=== PATIENT | male | born 1990 | race African-American/Black ===

== ENCOUNTER 2018-12-06 09:59 | Emergency (ER) | payer OTHER ==
[2018-12-06] MEDS ORDERED: IBUPROFEN 800 MG TABLET PO STA (10:57)
--- NOTE | 2018-12-06 10:59 | ED Physician Documentation ---
PD HPI URI - Stated complaint Stated Complaint: FLU LIKE SX - Chief complaint Chief Complaint: Abd Pain - History obtained from History obtained from: Family - History of Present Illness Timing - onset: How many days ago (2) Timing duration: Days (2) Timing details: Still present Associated symptoms: Fever, Sore throat, Productive cough Similar symptoms before: Has not had sx before - Additional information Additional information: The patient is a 28-year-old active [employer] male who presents with fever, myalgias, headache, sore throat, and cough, that is been persistent for the past 2 days. His cough is productive of scant sputum. He vomited 2 days ago, but denies nausea currently. He denies history of similar symptoms in the past. Review of Systems Constitutional: reports: Fever, Chills, Myalgias, Fatigue Eyes: denies: Irritation Ears: denies: Ear pain Nose: reports: Congestion Throat: reports: Sore throat Cardiac: denies: Chest pain / pressure, Palpitations Respiratory: reports: Cough. denies: Dyspnea GI: denies: Abdominal Pain, Nausea, Vomiting, Diarrhea : denies: Dysuria Skin: denies: Rash Musculoskeletal: denies: Back pain Neurologic: reports: Headache PD PAST MEDICAL HISTORY - Past Medical History Past Medical History: No Cardiovascular: None Respiratory: None Neuro: None Endocrine/Autoimmune: None GI: None : None HEENT: None Psych: None Musculoskeletal: None Derm: None - Past Surgical History Past Surgical History: No - Present Medications Home Medications: Ambulatory Orders Medication Instructions Recorded Confirmed Ibuprofen [Motrin] 800 mg PO Q8H PRN #30 tablet 12/06/18 cephALEXin [Cephalexin] 500 mg PO TID #20 tablet 12/06/18 - Allergies Allergies/Adverse Reactions: Allergies Allergy/AdvReac Type Severity Reaction Status Date / Time No Known Drug Allergies Allergy Verified 12/06/18 10:12 - Social History Does the pt smoke?: No Smoking Status: Never smoker Does the pt drink ETOH?: Yes ETOH Use: Liquor Does the pt have substance abuse?: No - Immunizations Immunizations are current?: Yes - POLST Patient has POLST: No PD ED PE NORMAL - Vitals Vital signs reviewed: Yes (febrile) - General General: Alert and oriented X 3, Well developed/nourished - HEENT HEENT: Atraumatic, EOMI, Ears normal, Other (Oropharynx is erythematous with mildly enlarged tonsils bilaterally, without exudates.) - Neck Neck: Supple, no meningeal sign, Other (Anterior cervical adenopathy bilaterally.) - Cardiac Cardiac: RRR, No murmur - Respiratory Respiratory: No respiratory distress, Clear bilaterally - Abdomen Abdomen: Soft, Non tender - Back Back: No CVA TTP - Derm Derm: No rash - Extremities Extremities: No edema, No calf tenderness / cord - Neuro Neuro: Alert and oriented X 3, No motor deficit, Normal speech Results - Vitals Vitals: Vital Signs - 24 hr 12/06/18 12/06/18 10:06 13:29 Temperature 39 C H 98.3 C H Heart Rate 102 H 88 Respiratory 18 16 Rate Blood Pressure 122/71 118/75 O2 Saturation 98 98 Oxygen O2 Source Room air - Labs Labs: Laboratory Tests 12/06/18 12/06/18 12/06/18 10:12 10:59 12:11 Infectious Lincoln Assay NEGATIVE Influenza A (Rapid) Negative Influenza B (Rapid) Negative Group A Strep Rapid Negative PD MEDICAL DECISION MAKING - ED course Complexity details: reviewed results, re-evaluated patient, considered differential, d/w patient, d/w family ED course: The patient's presentation is most consistent with acute tonsillitis. Rapid strep screen, influenza swab, and Monospot are all negative. His presentation does not suggest meningitis or tonsillar abscess. Treatment in the emergency department included administration of cephalexin 500 mg orally and ibuprofen 800 mg orally. He is being discharged with prescription for cephalexin and for ibuprofen. 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 Departure - Departure Disposition: 01 Home, Self Care Clinical Impression: Acute tonsillitis Qualifiers: Pharyngitis/tonsillitis etiology: unspecified etiology Qualified Code(s): J03.90 - Acute tonsillitis, unspecified Condition: Stable Instructions: ED Tonsillitis Follow-Up: [facility] [Provider Group] Prescriptions: cephALEXin [Cephalexin] 500 mg PO TID #20 tablet Ibuprofen [Motrin] 800 mg PO Q8H PRN #30 tablet PRN Reason: PAIN &/OR FEVER Comments: Gargle with cool liquids. Take cephalexin 3 times daily as prescribed. You can use ibuprofen, up to 800 mg 3 times daily for fever or discomfort. Follow-up with your primary physician within 1 to 2 weeks. Call to schedule appointment. Return to the emergency department if you develop increasing difficulty swallowing, or otherwise worsening symptoms. Forms: Activity restrictions Discharge Date/Time: 12/06/18 13:35
[2018-12-06] MEDS ORDERED: cephALEXin 250 MG CAPSULE PO STA (13:15)
[2018-12-06 13:30] VITALS: BP 118/75
== END 2018-12-06 13:35 | disposition home or self-care (01) ==
LOC: ED 09:59
DX: J03.90 Acute tonsillitis, unspecified (principal)
CPT/HCPCS: 36415; 86308; 87070; 87275; 87276; 87430; 99283; A9270

== ENCOUNTER 2019-08-10 13:35 | Outpatient (CLI) | payer OTHER ==
--- NOTE | 2019-08-10 17:06 | SLEEP CARE CONSULTATION ---
Information from patient questionnaire entered by Marichuy Page. I have reviewed and concur with the information entered by Marichuy Page. This document represents the service I personally performed and the decisions made by me, Saravanan Carrero MD, [facility]. History of Present Illness Reason for Visit: New patient Chief Complaint: reports: Snoring, Fatigue, Frequent awakenings at night Duration of Symptoms: 3 years Usual bedtime: [id number] Time it takes to fall asleep: 30 minutes Snores at night: Yes (sometimes) Observed to quit breathing while asleep: Yes Sleeps alone due to snoring: No Number of times waking at night: 3 Reasons for waking at night: reports: Snoring, Gasping for air Toss, Turn, or Twitch while sleeping: Yes Recalls having dreams: Yes Usually gets out of bed at: 0545 Feels refreshed in the morning: No Morning headache: No Sleepy or fatigued during the day: Yes Ever fallen asleep while driving: No Takes day naps: Yes Dreams during day naps: No Prior sleep studies: No Additional HPI information: I had the pleasure of seeing Mr. Murray today regarding the possibility of him having a sleep disorder. As you know, he is a 29 year old gentleman who complains of loud snore, frequent awakenings, unrefreshed sleep, and excessive daytime sleepiness. The patient tells me that he normally goes to bed around 10:30 - 11 pm, and it takes him approximately 30 minutes to fall asleep. He takes an [id number] sleep aid. He has not been told that he snores loudly and irregularly at night. He has also been observed to stop breathing in his sleep. He can recall waking up on the average of 3 times during the night. Most of the time he wakes up because of his own snoring, choking, and having to gasp for air. There is a lot of tossing and turning in his sleep. He has somniloquy (sleep talking) but not somnambulism (sleep walking). Generally he can recall having dreams. In the morning he usually gets up out of the bed around 5:45 a.m. (10 am on weekends) not feeling refreshed nor rested. He usually does not have a morning headache. During the day he complains of feeling sleepy and fatigued. His score on [place] Sleepiness Scale is 11 out of 24. He has never fallen asleep while driving nor has had any accident due to sleepiness. He usually takes naps during the day. Upon falling asleep during the day he denies having vivid dreams. He has never had sleep paralysis, experienced cataplexy or symptoms of restless leg syndrome. He reports having impaired concentration during the day. Subjective Initial [place] Sleepiness Scale score: 11 Social History The patient's occupation is active . Patient is Single and lives in [place]. Have you smoked in the past 12 months: No Alcohol use: Yes Alcohol amount and frequency: 3 on weekends Caffeine use: Yes Caffeine amount and frequency: 1 Family History Family history of sleep disordered breathing: No Allergies and Home Medications Drug allergies reviewed: Yes Home medication list reviewed: Yes Review of Systems Cardiovascular: denies: high blood pressure, palpitations, chest pain, irregular heart rate or pulse, leg or foot swelling, have to sleep sitting up, other Respiratory: denies: shortness of breath, wheeze, sputum production, chronic cough, other Gastrointestinal: denies: heartburn, difficulty swallowing, nausea, vomitting, diarrhea, abdominal pain, other Urinary: denies: incontinence, frequency, urgency, impotence, other Neurological: denies: headaches, seizure, head trauma, disorientation, speech dysfunction, gait or balance problems, fainting or unconsciousness, other Psychiatric: denies: Attention Deficit Hyperactivity, anxiety, depression, mood disorder, claustrophobia, other Ear/Nose/Throat: denies: nasal congestion, sinus problems, nose bleeds, dry mouth/throat, hoarseness, injury to nose, tonsillectomy, wisdom teeth removed, other Endocrine: denies: thyroid disease, history of goiter, sluggishness, too hot or cold, excessive thirst, increased appetite, increased urination, unexplained weakness, other Musculoskeletal: reports: joint pain, back pain Immunologic: denies: sneezing, rash, itching, allergies to food or environment, other Physical Exam Vital signs obtained and entered by: Dr. Carrero Blood Pressure: 114/76 Cuff size: regular Heart Rate: 66 O2 Saturation: 96 Height: 6 ft Weight: 160 lb Body Mass Index: 21.7 BMI Classification: Healthy weight Neck circumference: 14.5 Mood/affect: normal HEENT: No craniofacial malformation Nostrils: patent to airflow Turbinates: normal Septum: midline Mouth and throat: narrow oropharynx Soft palate: long Hard palate: normal Uvula: normal Uvula visualization: 50% Mallampati Class II Tongue: normal in size Tonsils: small Chin and jaw: normal size and position Neck: normal w/o lymphadenopathy or thyromegaly Heart: regular rate and rhythm Lungs: clear bilaterally Abdomen: soft, non-tender Extremities: no edema or clubbing Neurologic: intact, no focal deficits Impression and Plan IMPRESSION: 1. Suspected Obstructive Sleep Apnea-Hypopnea Syndrome, as suggested by history of loud and irregular snoring, observed cessation of breath while asleep, frequent awakenings during the night, unrefreshed sleep, and daytime hypersomnolence. Narrow oropharynx is a common predisposing factor for obstructive sleep apnea-hypopnea syndrome. Pathophysiology of sleep-disordered breathing was discussed. I recommend proceeding to polysomnography to confirm the diagnosis and to assess severity. I informed the patient of what the sleep studies involve and after some discussion, he agreed to proceed. Plan: 1. Schedule polysomnography and return in 1 to 2 weeks after the study to discuss result and initiate therapy. 2. Avoid long distance driving or when feeling sleepy. I spent 100% of this 20 minute visit face to face with the patient with greater than 50% of this was spent time counseling the patient and coordination of care.
[2019-08-10 17:07] VITALS: BP 114/76
== END 2019-08-10 13:36 | disposition home or self-care (01) ==
LOC: SC 13:35
PROVIDERS: ATTEND Internal Medicine Pulmonary Disease
DX: R06.83 Snoring (principal); R06.81 Apnea, not elsewhere classified; G47.8 Other sleep disorders; G47.10 Hypersomnia, unspecified
CPT/HCPCS: 99203; 99212

== ENCOUNTER 2019-09-03 19:36 | Outpatient (CLI) | payer OTHER | END 2019-09-03 19:37 | disposition home or self-care (01) | LOC: SC 19:36 | PROVIDERS: ATTEND Internal Medicine Pulmonary Disease | DX: R06.83 Snoring (principal); R06.81 Apnea, not elsewhere classified; G47.10 Hypersomnia, unspecified | CPT/HCPCS: 95810 ==

== ENCOUNTER 2019-09-14 14:08 | Outpatient (CLI) | payer OTHER ==
--- NOTE | 2019-09-14 14:48 | SLEEP CARE CONSULTATION ---
Information from patient questionnaire entered by Kendra Esquivel. I have reviewed and concur with the information entered by Kendra Esquivel. This document represents the service I personally performed and the decisions made by me, Saravanan Carrero MD, [facility]. History of Present Illness Initial [place] Sleepiness Scale score: 11 Current [place] Sleepiness Scale score: 10 Additional HPI information: HPI: Mr. Murray returned for follow up of the sleep study he had on 09-03-19. The polysomnography showed that the quality of the study is good. The patient had normal sleep efficiency. Except for mild sleep fragmentation, the sleep architecture was normal as well. Respiratory monitoring showed no significant sleep disordered breathing (AHI = 2.4) or hypoxia (sin oxygen saturation of 91%). The patient slept adequately in supine position (supine AHI = 2.8; non- supine = 1.30). Snore was light in intensity. There was no significant periodic leg movement of sleep. Cardiac rhythm was normal sinus rhythm without significant arrhythmia. There was bruxism. The patient was informed of these findings. I explained to him that except for bruxism, the sleep study was normal. Allergies and Home Medications Drug allergies reviewed: Yes Home medication list reviewed: Yes Review of Systems Review of systems same as previous: Yes Physical Exam Weight: 160 lb Impression and Plan IMPRESSION: 1. Bruxism (ICD-10 G47.63). The patient is aware of the problem. He was recommended to see a dentist. 2. Insufficient sleep causing excessive daytime sleepiness. According to his sleep diary, he goes to bed around 11 pm and it takes him 30 minutes to fall asleep. By 5:45 am he has to get up. This gives him about 6 hours of sleep a night. Because sleep debt accumulates, by the end of the work week he could be deprived of as much as 8 hours of sleep. He makes up by sleep in until 10 am on the weekends. PLAN: 1. Allow at least 8 hours for sleep and maintain a regular wake up time (avoid sleeping in on the weekends because it will cause him to not be able to fall asleep at the beginning of the night when he goes to bed early on weeknights). 2. Return for follow up on as needed basis. I spent 100% of this visit face to face with the patient with greater than 50% of this was spent time counseling the patient and coordination of care.
== END 2019-09-14 14:09 | disposition home or self-care (01) ==
LOC: SC 14:08
PROVIDERS: ATTEND Internal Medicine Pulmonary Disease
DX: G47.63 Sleep related bruxism (principal)
CPT/HCPCS: 99212; 99213